=== PATIENT | male | born 1975 | race Caucasian/White ===

== ENCOUNTER → 2021-03-14 | Outpatient (CLI) | payer MEDICARE, MEDICAID ==
[~2021-03-14] MED LIST: AMLO10TA4 PO; CALC667C4 PO; FOLI1TAB63 PO; LABE300T3 PO; LIP40 PO
== END | disposition home or self-care (01) ==
LOC: RAD 09:41
PROVIDERS: ATTEND Physician Assistant Medical
DX: I12.0 Hypertensive chronic kidney disease with stage 5 chronic kidney disease or end stage renal disease (principal); N18.6 End stage renal disease
CPT/HCPCS: 93005

== ENCOUNTER → 2021-03-23 | Day surgery (SDC) | payer MEDICARE, MEDICAID ==
[~2021-03-23] VITALS: Ht 167.6 cm; Wt 80.0 kg
[~2021-03-23] MED LIST changes: +ACETAMINOPHEN 500MG TABLET ONE; +ASPI-986 PO; +BACITRACIN 15GM TUBE TOP ONE; +BIMA2.5D4 BOTHEYE; +BUPIVACAINE HCL/PF 0.25% (2.5MG/ML) 10ML ONE; +BUPIVACAINE HCL/PF 0.5% (5MG/ML) 10ML ONE; +CEFAZOLIN SODIUM 1000MG/VIAL ONE; +DEXAMETHASONE 4MG/ML 1ML VIAL ONE; +FENTANYL CITRATE/PF 50MCG/ML 2ML VIAL ONE; +HEPARIN SODIUM 1,000 UNIT/1ML VIAL IV ONE; +HYDROCODONE/ACETAMINOPHEN 5/325MG TABLET PO PRN; +HYDROMORPHONE HCL/PF 2MG/ML CPJ IV PRN; +LIDOCAINE HCL 1% 20ML VIAL (Pyxis) INJ ONE; +LIDOCAINE HCL/PF 1% 10 MG/ML 5ML VIAL ONE; +LOSA25TA26 PO; +METOCLOPRAMIDE HCL 10MG/2ML VIAL ONE; +MIDAZOLAM HCL 2 MG/2 ML VIAL ONE; +ONDANSETRON HCL 4MG/2ML INJ ONE; +PAPAVERINE HCL 30 MG/ML 2ML IV ONE; +PHENYLEPHRINE HCL 10 MG/ML 1ML (IV VIAL) IV ONE; +POLYMYXIN B SULFATE 500000 UNITS/VIAL ONE; +PROPOFOL 200MG/20ML VIAL IV ONE; +SEVE800T8 PO; +SODIUM CHLORIDE 0.9% 10ML VIAL ONE; +SODIUM CHLORIDE 0.9% 500 ML IV ONE; +SODIUM CHLORIDE 0.9% INJ 3ML FLUSH IVF SCH; +THROMBIN (BOVINE) 5000 UNITS/VIAL TOP ONE
[2021-03-23 07:07] LABS: INR 1.1; PARTIAL THROMBOPLASTIN TIME 29.1 sec (23.4-31.0); PROTHROMBIN TIME 11.5 sec (9.6-11.0)
[2021-03-23 07:17] LABS: HEMATOCRIT. 34.6 % (42.0-52.0); HEMOGLOBIN. 11.6 g/dL (14.0-18.0); MEAN CORPUSCULAR HEMOGLOBIN 30.3 pg (28.0-32.0); MEAN CORPUSCULAR VOLUME 90.4 fL (80.0-94.0); MEAN PLATELET VOLUME 9.1 fl (7.4-10.4); PLATELET 111 x1000/uL (130-400); RED BLOOD CELL COUNT 3.83 mill/uL (4.7-6.1); RED CELL DISTRIBUTION WIDTH 16.7 % (11.6-14.6)
[2021-03-23 13:06] LABS: PLATELET ESTIMATE SLIGHTLY DECREASED
== END | disposition home or self-care (01) ==
LOC: OR 05:29
PROVIDERS: ATTEND Surgery Vascular Surgery
DX: I12.0 Hypertensive chronic kidney disease with stage 5 chronic kidney disease or end stage renal disease (principal); N18.6 End stage renal disease; E78.00 Pure hypercholesterolemia, unspecified; E11.22 Type 2 diabetes mellitus with diabetic chronic kidney disease; Z99.2 Dependence on renal dialysis; Z79.82 Long term (current) use of aspirin; Z79.84 Long term (current) use of oral hypoglycemic drugs; Z79.899 Other long term (current) drug therapy; Z98.890 Other specified postprocedural states
CPT/HCPCS: 36415; 37607; 80048; 85025; 85610; 85730; J0690; J1100; J1644; J2250; J2370; J2405; J2704; J2765; J3010; J3490; J7030; J7040; J2440

== ENCOUNTER → 2021-03-23 | Outpatient (CLI) | payer MEDICARE, MEDICAID ==
[~2021-03-23] MED LIST changes: -ACETAMINOPHEN 500MG TABLET ONE; -BACITRACIN 15GM TUBE TOP ONE; -BUPIVACAINE HCL/PF 0.25% (2.5MG/ML) 10ML ONE; -BUPIVACAINE HCL/PF 0.5% (5MG/ML) 10ML ONE; -CEFAZOLIN SODIUM 1000MG/VIAL ONE; -DEXAMETHASONE 4MG/ML 1ML VIAL ONE; -FENTANYL CITRATE/PF 50MCG/ML 2ML VIAL ONE; -HEPARIN SODIUM 1,000 UNIT/1ML VIAL IV ONE; -HYDROCODONE/ACETAMINOPHEN 5/325MG TABLET PO PRN; -HYDROMORPHONE HCL/PF 2MG/ML CPJ IV PRN; -LIDOCAINE HCL 1% 20ML VIAL (Pyxis) INJ ONE; -LIDOCAINE HCL/PF 1% 10 MG/ML 5ML VIAL ONE; -METOCLOPRAMIDE HCL 10MG/2ML VIAL ONE; -MIDAZOLAM HCL 2 MG/2 ML VIAL ONE; -ONDANSETRON HCL 4MG/2ML INJ ONE; -PAPAVERINE HCL 30 MG/ML 2ML IV ONE; -PHENYLEPHRINE HCL 10 MG/ML 1ML (IV VIAL) IV ONE; -POLYMYXIN B SULFATE 500000 UNITS/VIAL ONE; -PROPOFOL 200MG/20ML VIAL IV ONE; -SODIUM CHLORIDE 0.9% 10ML VIAL ONE; -SODIUM CHLORIDE 0.9% 500 ML IV ONE; -SODIUM CHLORIDE 0.9% INJ 3ML FLUSH IVF SCH; -THROMBIN (BOVINE) 5000 UNITS/VIAL TOP ONE
== END | disposition home or self-care (01) ==
LOC: LAB 06:05
PROVIDERS: ATTEND Surgery Vascular Surgery
DX: Z20.822 Contact with and (suspected) exposure to COVID-19 (principal)
CPT/HCPCS: 87426

== ENCOUNTER → 2024-01-07 | Outpatient (CLI) | payer MEDICARE, MEDICAID ==
[~2024-01-07] MED LIST changes: -AMLO10TA4 PO; -CALC667C4 PO; -LABE300T3 PO; -LIP40 PO
== END | disposition home or self-care (01) ==
LOC: CARD 10:43
PROVIDERS: ATTEND Physician Assistant Medical
DX: I10 Essential (primary) hypertension (principal)
CPT/HCPCS: 93005